=== PATIENT | male | born 1960 | race Caucasian/White ===

== ENCOUNTER → 2019-07-04 | Outpatient (REF) | payer OTHER ==
[2019-07-04 17:56] LABS: APPEARANCE, URINE CLEAR (CLEAR); BACTERIA, URINE AUTO NEGATIVE (NEGATIVE); BILIRUBIN, URINE AUTO NEGATIVE (NEGATIVE); BLOOD, URINE BLOOD 3+ (NEGATIVE); COLOR, URINE YELLOW (YELLOW); GLUCOSE, URINE (UA) AUTO NEGATIVE (NEGATIVE); KETONE, URINE AUTO NEGATIVE (NEGATIVE); LEUKOCYTE ESTERASE, URINE AUTO 1+ (NEGATIVE); MUCUS, URINE SMALL (NEGATIVE); NITRITE, URINE AUTO NEGATIVE (NEGATIVE); PROTEIN, URINE AUTO 1+ mg/dL (NEGATIVE); RBC, URINE AUTO 1 /HPF (0-3); SQUAMOUS EPITHELIAL CELL UR AU 0 /HPF (0-6); UROBILINOGEN, URINE AUTO 0.2 mg/dL (0.0-2.0); WBC, URINE AUTO 4 /HPF (0-3)
== END ==
LOC: M SMT 16:54
PROVIDERS: ATTEND Nurse Practitioner Family
DX: N20.0 Calculus of kidney (principal); R31.0 Gross hematuria

== ENCOUNTER 2019-08-06 09:51 | Day surgery (SDC) | payer OTHER ==
[~2019-08-06] VITALS: Ht 188 cm; Wt 108.8 kg
[~2019-08-06 09:51] MED LIST: D5W/0.2% SODIUM CHLORIDE 1,000 ML IV ONE; FLOM0.4C39 PO; LIDOCAINE 1% MDV 20ML VIAL SQ PRN; METO200T28 PO; ceFAZolin SOD 2 GM in IV 1 EA IV ONE
[2019-08-06] MEDS ORDERED: BACT800T5 PO (10:17)
[2019-08-06] MEDS ORDERED: fentaNYL 250 MCG/5 ML INJECTION (J3010) As Ordered ONE (11:05)
[2019-08-06] MEDS ORDERED: PROPOFOL 200 MG/20 ML VIAL As Ordered ONE (11:05)
[2019-08-06] MEDS ORDERED: ONDANSETRON 4MG/2ML VIAL (J2405) As Ordered ONE (11:05)
[2019-08-06] MEDS ORDERED: ROCURONIUM BROMIDE 50 MG/5 ML VIAL As Ordered ONE (11:05)
[2019-08-06] MEDS ORDERED: LIDOCAINE 2% INJ 100 MG/5 ML SDV (FOR ANES.) As Ordered ONE (11:05)
[2019-08-06] MEDS ORDERED: dexameTHASONE 4 MG/ML 1ML VIAL (J1100) As Ordered ONE (11:05)
[2019-08-06] MEDS ORDERED: MIDAZOLAM INJ 2 MG/2 ML VIAL (J2250) As Ordered ONE (11:06)
[2019-08-06] MEDS ORDERED: LR 1,000 ML IV ONE (12:00)
[2019-08-06] MEDS ORDERED: CONRAY-60 60% 50ML VIAL (Q9961) As Ordered ONE (13:39)
[2019-08-06] MEDS ORDERED: PHENYLephrine HCL 500 MCG/5 ML (100MCG/ML) SYRINGE (J2370) As Ordered ONE (13:59)
[2019-08-06] MEDS ORDERED: ePHEDrine SULFATE 25 MG/5 ML(5MG/ML) SYRINGE As Ordered ONE (14:14)
[2019-08-06] MEDS ORDERED: ACETAMINOPHEN 1000MG 100ML IV BTL (OFIRMEV) (J0131 PER 10MG) As Ordered ONE (14:39)
[2019-08-06] MEDS ORDERED: PHENYLEPHRINE INJ 10MG/ML VIAL (J2370) As Ordered ONE ×2 (14:53→15:01)
[2019-08-06] MEDS ORDERED: oxyCODONE 5MG TAB As Ordered ONE (16:07)
[2019-08-06] MEDS ORDERED: fentaNYL 100 MCG/2 ML INJECTION (J3010) IV PRN (16:15)
[2019-08-06] MEDS ORDERED: oxyCODONE 5MG TAB PO PRN (16:15)
[2019-08-06] MEDS ORDERED: ONDANSETRON 4MG/2ML VIAL (J2405) IV PRN (16:15)
[2019-08-06] MEDS ORDERED: LR 1,000 ML IV SCH (16:15)
[2019-08-06] MEDS ORDERED: BELLADONNA 16.2mg/OPIUM 30mg 1 EA SUPP PR PRN (16:30)
[2019-08-06 17:00] VITALS: BP 125/70
[2019-08-06 17:30] VITALS: BP 122/70
[2019-08-06 18:30] VITALS: BP 117/70
[2019-08-06 21:00] VITALS: O2SAT 96
[2019-08-06 22:31] VITALS: BP 107/66
[2019-08-07 05:52] VITALS: BP 133/69
[2019-08-07] MEDS ORDERED: ACETAMINOPHEN TAB 650MG DOSE (2X325MG) PO PRN (06:00)
[2019-08-07 06:08] LABS: HEMATOCRIT 38.9 % (42.0-52.0); HEMOGLOBIN 12.4 g/dl (13.5-17.5); MEAN CORPUSCULAR HEMOGLOBIN 28.6 pg (27.0-33.0); MEAN CORPUSCULAR HGB CONC 31.9 g/dl (32.0-36.5); MEAN CORPUSCULAR VOLUME 89.6 fl (80.0-96.0); PLATELET COUNT, AUTOMATED 292 10^3/uL (150-450); RED BLOOD COUNT 4.34 10^6/uL (4.30-6.10); WHITE BLOOD COUNT 13.1 10^3/uL (4.0-10.0)
[2019-08-07 06:19] LABS: CALCIUM LEVEL 8.5 MG/DL (8.8-10.2); CREATININE FOR GFR 1.41 MG/DL (0.70-1.30); GLOMERULAR FILTRATION RATE 54.6 (>49); POTASSIUM SERUM 4.7 MEQ/L (3.5-5.1)
[2019-08-07] MEDS ORDERED: ISOVUE-370 76% 100ML VIAL (Q9967) As Ordered ONE (08:20)
[2019-08-07] MEDS ORDERED: TAMSULOSIN 0.4 MG CAP PO SCH (09:00)
[2019-08-07] MEDS ORDERED: METOPROLOL SUCC (TopROL XL) 100MG *XL* TAB PO SCH (09:00)
[2019-08-07] MEDS ORDERED: TOLTERODINE TARTRATE 2 MG LA CAP (DETROL LA) PO SCH (09:00)
[2019-08-07 09:17] VITALS: BP 133/69
[2019-08-07 09:37] VITALS: O2SAT 96
[2019-08-07 10:00] VITALS: BP 132/72
--- NOTE | 2019-08-07 10:14 | REP ---
CT ABDOMEN AND PELVIS WITH AND WITHOUT IV CONTRAST (CT Urogram): CT abdomen and pelvis performed prior to and following the intravenous administration of 100 mL of Isovue 370. Sagittal, coronal, and 3D MIP reconstruction images are performed. Mild fibrotic atelectatic changes are seen in the visualized lung bases bilaterally. Precontrast images show several tiny subcentimeter gallstones in the gallbladder. There is a 3-4 mm calculus in the mid to lower right renal collecting system. There is a 3 mm calculus in the mid left renal collecting system. There is a punctate calcification in that portion of the left renal collecting system as well. There is no ureteral or bladder calculus and no evidence of hydroureteronephrosis. There is a nodule in the liver, in the posterior segment of the right lobe measuring 1.5 cm in diameter superiorly. This becomes Isodense to liver parenchyma on delayed post contrast images. This may represent hemangioma. There is no evidence of biliary dilatation. Spleen is normal in size with tiny calcified granuloma medially. There is mild thickening of the left adrenal gland. Right adrenal gland demonstrates a low density nodule consistent with an adenoma, measuring about 3 cm in maximum diameter. Pancreas is unremarkable with no mass. No renal mass is seen bilaterally. There is mild atherosclerotic calcification of the abdominal aorta without aneurysm. Small umbilical hernia contains fat. No adenopathy is seen. The appendix is distended with low density material and is somewhat dilated measuring 2.7 x 1.5 cm. 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 A few diverticula are seen of the sigmoid colon. In the pelvis, the bladder contains a Ray catheter. Dense hemorrhage is seen surrounding the Ray catheter as well as a small amount of air. The prostate appears enlarged. IMPRESSION: Nodule in the right lobe of the liver on initial post-contrast edges becomes Isodense to liver on delayed images and probably represents hemangioma. Recommend comparison with any prior studies. Right adrenal nodule compatible with an adenoma. Intrarenal calculus bilaterally. No ureteral calculus bilaterally. No hydroureteronephrosis. There are a few tiny cysts in the right kidney and two in the left kidney with no renal mass. Urinary bladder contains a Ray catheter with a small amount of hemorrhage and air. Prostate enlarged. Low density material in the appendix with distention 2.7 x 1.5 cm. 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 Recommend surgical consult. Small umbilical hernia contains fat. Small gallstones in the gallbladder without gallbladder wall edema or evidence of biliary dilatation. Electronically Signed by Hans Jose MD 08/07/2019 04:02 P
--- NOTE | 2019-08-07 17:39 | RO ---
DATE OF PROCEDURE: 08/06/2019 PREPROCEDURE DIAGNOSIS: BPH with urinary retention and possible left ureteral calculus. POSTPROCEDURE DIAGNOSIS: BPH with urinary retention and possible left ureteral calculus. PROCEDURE: Cystoscopy and transurethral resection of prostate SURGEON: Dr. Óscar Adrian STOCK ROOM MANAGER: ANESTHESIA: General. INDICATION FOR OPERATION: This is a 59-year-old white male who originally presented to the office for urinary retention. He failed a trial of voiding and cystoscopic examination showed that he had an extremely large prostate with varices and inflammation around the floor of the bladder. Previous CT scan suggested a possible distal left calculus, and he was, therefore, brought to the operating room for transurethral resection of prostate and a retrograde pyelogram to evaluate the left ureter. DESCRIPTION OF PROCEDURE: The patient was anesthetized with general anesthesia after being placed on the cysto table. He was then placed in the lithotomy position, prepped with Betadine paint and draped in an aseptic manner. Time-out was then performed. The 26[place] resectoscope was then inserted into the meatus and advanced under direct vision of a 30-degree lens with the visual obturator in place. The prostate was obstructive with a very large median lobe. In the bladder, the mucosa was evaluated, but the evaluation was difficult because of the size of the prostate. He had a lot of varices on the trigonal region, and there was significant bullous edema around the area of the left ureteral orifice. Because of this, the orifice could not be identified. The right ureteral orifice was difficult to identify because of the large prostate. After searching for the ureteral orifice for at least 10 minutes, the decision was made to take care of the prostate first since the patient is asymptomatic with the stone if it is present. The loop resecting element was then inserted into the resectoscope and the prostate was resected beginning with the median lobe, which was carried down to the bladder neck. The left and right lateral lobes, anterior and floor of the prostate were resected. Prostate was extremely large and at times visualization was difficult because of the bleeding. Care, however, was taken not to injure ureteral orifices or to resect beyond the verumontanum. Hemostasis was then achieved with cauterization and the chips were irrigated out of the bladder. When all of the chips were seen to be removed and hemostasis was good, the patient was catheterized with a 24[place] three-way Ray catheter over a wire guide. The balloon was then inflated with 60 mL of sterile water and connected to continuous bladder irrigation and taped to the right leg with mild traction. The patient will have a CT scan in house before he leaves, and if the stone is still present, he may need a DMSA scan to evaluate renal function on the left.
--- NOTE | 2019-08-08 08:27 | DS.PDOC ---
Discharge Summary General Date of Admission 08/06/19 Date of Discharge 08/07/19 Attending Physician: DONTRELL SIN MD Discharge Summary PROCEDURES PERFORMED DURING STAY: Transurethral resection prostate ADMITTING DIAGNOSES: 1. BPH with retention DISCHARGE DIAGNOSES: 1. BPH with retention. 2. Left renal calculus COMPLICATIONS/CHIEF COMPLAINT: Benign Prostatic Hyperplasia. HISTORY OF PRESENT ILLNESS: This is a pleasant 59-year-old white male with a history of urinary retention, having failed several trials of voiding. He was ever brought to the hospital for a TUR prostate HOSPITAL COURSE: The patient's prostate was quite large, requiring extended operating time but prostate was resected well. He had a large amount of inflammation on the trigonal portion of the bladder especially around the left ureteral orifice leading to question of possible stone in the left side. He also had large amounts of varices on the trigonal portion. A CT scan was performed to evaluate the kidneys for stones. He has a small stone in the left kidney, but no ureteral obstructions or ureteral stones. It was therefore discharged and has a follow-up appointment to have his Ray catheter removed. During his hospital stay. He was on continuous bladder irrigation and the urine remained pink. DISCHARGE MEDICATIONS: Please see below. ALLERGIES: Please see below. PHYSICAL EXAMINATION ON DISCHARGE: VITAL SIGNS: Please see below. GENERAL: Patient is comfortable, by mouth well and ambulating HEENT: Within normal limits NECK: Supple without adenopathy CARDIOVASCULAR EXAMINATION: Regular RESPIRATORY EXAMINATION: Clear to auscultation and percussion ABDOMINAL EXAMINATION: Benign EXTREMITIES: Good range of motion SKIN: Within normal limits NEUROLOGICAL EXAMINATION: Normal PSYCHIATRIC EXAMINATION: Normal LABORATORY DATA: Please see below. IMAGING: CT scan was performed showing a left renal calculus but no ureteral obstructions PROGNOSIS: Good ACTIVITY: [As tolerated]. DIET: Regular as tolerated DISCHARGE PLAN: Patient will be discharged home with the Ray catheter which will be removed on August 13 in the office DISPOSITION: . DISCHARGE INSTRUCTIONS: 1. Routine catheter care ITEMS TO FOLLOWUP ON ON OUTPATIENT: 1. Left renal calculus will need monitoring DISCHARGE CONDITION: [Stable]. TIME SPENT ON DISCHARGE: Greater than 40 minutes. Vital Signs/I&Os Vital Signs Date Time Temp Pulse Resp B/P (MAP) Pulse Ox O2 Delivery O2 Flow Rate FiO2 08/07/19 10:00 97.5 96 17 132/72 (92) 96 Room Air 08/06/19 21:00 2.0 I&O- Last 24 Hours up to 6 AM 08/08/19 06:00 Intake Total 0 ml Output Total 800 ml Balance -800 ml Laboratory Data Labs 24H Hematocrit and electrolytes remained stable Discharge Medications Scheduled Metoprolol Succinate (Metoprolol Succinate) 200 Mg Tab.er.24h, 200 MG PO DAILY, (Reported) Sulfamethoxazole/Trimethoprim (Bactrim Ds Tablet) 1 Each Tablet, 1 TAB PO BID, (Reported) Tamsulosin HCl (Flomax) 0.4 Mg Capsule, 0.8 MG PO DAILY, (Reported) Allergies Coded Allergies: No Known Allergies (Unverified , 08/02/19) DONTRELL SIN MD Aug 08, 2019 08:27
== END 2019-08-07 16:36 | disposition home or self-care (01) ==
LOC: M SDC 09:51 → M MS5PR 16:40 → M SDC 08-07 16:36
PROVIDERS: ATTEND Urology
DX: N40.1 Benign prostatic hyperplasia with lower urinary tract symptoms (principal); I10 Essential (primary) hypertension; E78.5 Hyperlipidemia, unspecified; Z79.899 Other long term (current) drug therapy
CPT/HCPCS: 36415; 52601; 74170; 80048; 85027; 88305; J0131; J0690; J1100; J2250; J2370; J2405; J3010; Q9961; Q9967